=== PATIENT | male | born 1955 ===

== ENCOUNTER → 2023-09-03 02:29 | Outpatient (CLI) | payer MEDICARE, SELFPAY ==
--- NOTE | 2023-09-03 | DI.CT_ITS ---
Exam(s) CT ABDOMEN PELVIS W EXAM: CT ABDOMEN PELVIS W CLINICAL HISTORY: K46.9, I71.40, r/u hernia on left side abd cavi. TECHNIQUE: Imaging Protocol: Axial computed tomography images with coronal and sagittal reformatted images were created and reviewed CONTRAST MATERIAL: Intravenous: Omnipaque-350 100cc Oral: None COMPARISON: CT CT ABD/PELVIC w/c from 12/09/[address] ABDOMEN AND PELVIS W CONTRAST from 10/30/2020from outside institution FINDINGS: VISUALIZED LUNG BASES: No nodules nor pleural effusions evident. ABDOMEN: GI: There is abnormal density at the GE junction and proximal stomach which may be related to prior f undoplication surgery versus mass. Correlation with prior surgery in this area is recommended. May require endoscopy/biopsy.. The oral contrast has progressed to the colon. There is no bowel obstruc tion, free air, nor abscess. No ascites. LIVER: There are no focal hepatic lesions evident. No dilated intrahepatic ducts. GALLBLADDER/BILIARY: No obvious gallbladder pathology. CBD is not dilated. PANCREAS: No evidence of pancreatic mass nor dilatation of the pancreatic duct. SPLEEN: Spleen size is normal. However with there is no abnormality in the lateral aspect of the spl een which was not evident on the prior CT scan of October 2020. Possibly related to interval trauma as this appears subcapsular, measuring 2.2 by 1.8 cm. Splenic and portal veins are patent. ADRENALS: Adrenal glands are somewhat hyperplastic, and there is hypodense thickening of the genu of the left adrenal gland which may represent adenoma, unchanged. KIDNEYS:No cysts evident. No solid renal masses. No calculi nor hydronephrosis. Some streaking abiola und the kidneys is again noted, again more prominent around the left kidney. No new renal findings. No hydronephrosis. ABDOMINAL AORTA: Abdominal aorta is calcified and exhibits mild dilatation. On the left side of the lower abdominal aorta there is an outpouching of the wall which is larger than previous, measuring ap proximately 2 cm by 1.4 cm, this just above the aortic bifurcation. This was not present on CT scan of November 2016. It is slightly further progressed. There is arteriomegaly of the common iliac arterie s. LYMPH NODES:There is no retroperitoneal nor paraaortic adenopathy. ABDOMINAL WALL: No evidence of significant anterior abdominal wall nor inguinal hernia. PELVIS: GI: Appendix is not seen as an independent structure but there is no obvious evidence of appendicitis .Sigmoid diverticuli without evidence of acute diverticulitis. LYMPH NODES: There is no intrapelvic nor inguinal adenopathy. REPRODUCTIVE: Prostate size upper normal. URINARY BLADDER: Mild uniform thickening of the urinary bladder wall. OSSEOUS: Nonexpansile sclerotic density in the anterior aspect of the left hip femoral head again not ed. Probably benign bone island. IMPRESSION: 1. Abnormal density at the GE junction which may require endoscopy. Correlation with any history of prior fundoplication is recommended. 2. Subcapsular density in lateral aspect of the spleen, more evident than previous. Possible subcaps ular hematoma versus other pathology. 3. Atherosclerotic mildly dilated abdominal aorta and iliac arteries. 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 4. Abnormal appearing abdominal aorta with left-sided outpouching at the level the aortic bifurcation , slightly more prominent than previous. Correlation any prior history of aortic surgery recommended . Make constitute slow leak at this level. Other findings as above. RADIATION DOSE DELIVERED: Total DLP DATA REPOSITORY: All CT scans at this facility are submitted to the National Radiology Data Registry (NRDR) Dose Index Registry (DIR) with the [employer] ([employer]). RADIATION OPTIMIZATION: All CT scans at this facility use at least one of these dose optimization te chniques: automated exposure control; mA and/or kV adjustment per patient size (includes targeted exa ms where dose is matched to clinical indication); or iterative reconstruction.
[2023-09-03] MEDS: Barium Sulfate 2% W/V-Creamy Vanilla Smoothie 450 ML BTL PO (07:38)
[2023-09-03] MEDS: Barium Sulfate 2% W/V-Berry Smoothie 450 ML BTL PO (07:40)
[2023-09-03 08:19] LABS: Anion Gap 6.2 mmol/L (3-11); BUN 23 mg/dL (7-18); CO2 31.8 mmol/L (21.0-32.0); CREATININE 1.2 mg/dL (0.70-1.30); Calcium 9.5 mg/dL (8.5-10.1); Chloride 98 mmol/L (98-107); Estimated GFR 65.46 (mL/min/1.73m2); Glucose 109 mg/dL (74-106); Potassium 5.3 mmol/L (3.5-5.1); Sodium 136 mmol/L (136-145)
[2023-09-03] MEDS: Normal Saline - Diluent 50 ML VIAL IJ (09:54)
[2023-09-03] MEDS: Omnipaque 350 MG/ML 500 ML BTL-Imaging package IJ (09:55)
== END ==
PROVIDERS: Visit Provider Nurse Practitioner Acute Care
DX: K46.9 Unspecified abdominal hernia without obstruction or gangrene (principal); I71.40 Abdominal aortic aneurysm, without rupture, unspecified; N40.0 Benign prostatic hyperplasia without lower urinary tract symptoms; R93.3 Abnormal findings on diagnostic imaging of other parts of digestive tract; D73.89 Other diseases of spleen; Z01.812 Encounter for preprocedural laboratory examination
CPT/HCPCS: 80048; 74177